=== PATIENT | male | born 1960 | race Caucasian/White ===

== ENCOUNTER 2017-11-21 09:33 | Emergency (ER) | payer BC ==
[2017-11-21 09:49] VITALS: BP 116/73
--- NOTE | 2017-11-21 10:11 | UC ---
Skin Complaint HPI - HPI Summary HPI Summary: Found tick imbedded on back of L shoulder last night, pulled it off. Spends a lot of time outdoors, has no idea how long it's been on him. Hx of lyme, concerned about tick-borne illness. Denies other complaints. - History of Current Complaint Chief Complaint: UCSkin Time Seen by Provider: 11/21/17 09:55 Stated Complaint: TICK BITE Hx Obtained From: Patient Onset/Duration: Sudden Onset Skin Exposure Onset/Duration: Days Ago Timing: Constant Onset Severity: Mild Current Severity: None Pain Intensity: 0 Character: Redness Aggravating Factor(s): Nothing Alleviating Factor(s): Nothing Associated Signs & Symptoms: Positive: Negative Related History: Insect Bite/Sting - Allergy/Home Medications Allergies/Adverse Reactions: Allergies Allergy/AdvReac Type Severity Reaction Status Date / Time No Known Allergies Allergy Verified 11/21/17 09:49 Home Medications: Home Medications Triamcinolone NASAL SPRAY* [Nasacort Aq Nasal [place]*] 1 spray NASAL DAILY [History Confirmed 11/21/17] Review of Systems Constitutional: Negative Skin: Other - tick Eyes: Negative ENT: Negative Respiratory: Negative Cardiovascular: Negative Gastrointestinal: Negative Genitourinary: Negative Motor: Negative Neurovascular: Negative Musculoskeletal: Negative Neurological: Negative Psychological: Negative Is Patient Immunocompromised?: No All Other Systems Reviewed And Are Negative: Yes PMH/Surg Hx/FS Hx/Imm Hx Previously Healthy: Yes - Surgical History Surgical History: Yes Surgery Procedure, Year, and Place: TONSILECTOMY - Family History Known Family History: Positive: None - Social History Occupation: Employed Full-time Lives: With Family Alcohol Use: Occasionally Alcohol Amount: 1 glass of wine with dinner Substance Use Type: None Smoking Status (MU): Never Smoked Tobacco Have You Smoked in the Last Year: No - Immunization History Most Recent Influenza Vaccination: hasn't recieved Most Recent Tetanus Shot: up to date Most Recent Pneumonia Vaccination: hasn't recvied Physical Exam Triage Information Reviewed: Yes Appearance: Well-Appearing, No Pain Distress, Well-Nourished Vital Signs: Initial Vital Signs Temp 96.8 F 11/21/17 09:45 Pulse 53 11/21/17 09:45 Resp 18 11/21/17 09:45 BP 116/73 11/21/17 09:45 Pulse Ox 100 11/21/17 09:45 Vital Signs Reviewed: Yes Eye Exam: Normal Eyes: Positive: Conjunctiva Clear ENT Exam: Normal ENT: Positive: Normal ENT inspection, Hearing grossly normal, Pharynx normal, TMs normal Neck exam: Normal Neck: Positive: Supple, Nontender, No Lymphadenopathy Respiratory Exam: Normal Respiratory: Positive: Chest non-tender, Lungs clear, Normal breath sounds, No respiratory distress, No accessory muscle use Cardiovascular Exam: Normal Cardiovascular: Positive: RRR, No Murmur Musculoskeletal Exam: Normal Musculoskeletal: Positive: Strength Intact Neurological Exam: Normal Neurological: Positive: Alert Psychological Exam: Normal Skin Exam: Other - tick bite site benign on L shoulder -- less than 1cm round red area with ecchymotic center. No drainage or streaking. Course/Dx - Diagnoses Provider Diagnoses: tick bite Discharge - Sign-Out/Discharge Documenting (check all that apply): Discharge/Admit/Transfer - Discharge Plan Condition: Stable Disposition: HOME Prescriptions: DOXYcycline CAP(*) [DOXYcycline 100MG CAP(*)] 200 mg PO ONCE #2 cap Patient Education Materials: Tick Bite (ED) Referrals: Warren Gibson MD [Primary Care Provider] - Additional Instructions: You have been bitten by a tick. Once the tick is removed, these "bites" usually cause no problems. Tick fever, tick paralysis, [place] Spotted fever, and Lyme disease are uncommon -- but you should mention this tick bite to your doctor if you develop unusual symptoms in the next several weeks. If you develop any of the following, please see your physician promptly: (1) Fever, chills, or generalized malaise associated with a headache. (2) A red round area at the site of the bite (or elsewhere) (3) Joint pain, joint swelling or generalized weakness. (4) Redness, swelling, or drainage at the site of the bite. Check yourself, your children and your pets for ticks whenever you've been in an area where ticks live. To remove a tick, grasp it firmly with some tweezers or a string in a slipknot as close to its head as possible and pull it steadily. Ticks do not have a typical "head" attached to their body. There are mouth parts sticking out which they use to feed. If there are mouth parts left behind in the wound there is NO increased risk of Lyme infection; however, the chances of a bacterial skin infection (cellulitis) are higher. If mouth parts remain after tick removal, the best thing to do is apply warm soaks to the area 3-4 times per day to encourage the skin to expel the foreign material. DOXYCYCLINE: Doxycycline (Vibramycin, Doryx) is an antibiotic of the tetracycline family. This type of drug is useful for infections of the respiratory tract and genital tract, and is sometimes used for intestinal infections. Unlike most tetracyclines, doxycycline can be taken with food. It is longer acting, and (usually) less prone to side effects than regular tetracycline. Tetracycline antibiotics can stain immature teeth and SHOULD NOT BE TAKEN BY CHILDREN, NURSING MOTHERS, OR WOMEN. Tetracyclines can make you more prone to sunburn. Abdominal cramping, nausea, and diarrhea are occasional side effects. Women may experience vaginal yeast infections. Call the doctor at once if you develop hives, itching, shortness of breath , or lightheadedness. WHEN A TICK IS NOT ENGORGED AND HAS BEEN ON LESS THAN 24 HOURS - THE RISK FOR LYME IS NEGLIGIBLE. YOU CAN REMOVE THE TICK AND OBSERVE THE AREA ON YOUR OWN. FOLLOW-UP CARE: You should contact your private physician for follow-up care if you develop spreading redness near the site of the bite or on any other areas of the body. If you are unable to get a timely appointment, or if you are worsening, call us or return for re-evaluation. - Billing Disposition and Condition Condition: STABLE Disposition: HOME
== END 2017-11-21 10:17 | disposition home or self-care (01) ==
LOC: UCEAST 09:33
DX: S40.262A Insect bite (nonvenomous) of left shoulder, initial encounter (principal); W57.XXXA Bitten or stung by nonvenomous insect and other nonvenomous arthropods, initial encounter; Y93.9 Activity, unspecified; Y92.9 Unspecified place or not applicable
CPT/HCPCS: 99212; G0463

== ENCOUNTER 2018-03-05 08:27 | Emergency (ER) | payer BC ==
[2018-03-05 08:39] VITALS: BP 107/63
[2018-03-05] MEDS ORDERED: Tetan/Diph/Pertus SYR(Tdap)* 0.5 ML SYR(BOOSTRIX) use SYR IM ONE (08:44)
--- NOTE | 2018-03-05 08:49 | UC ---
Laceration HPI - HPI Summary HPI Summary: This patient is a 57 year old M presenting to [facility] with a chief complaint of a puncture wound to R hand since yesterday. Patient denies pain when moving his thumb. He was ripping out floor boards and a nail punctured his R hand. The nail came out on its own. Patient did not clean the wound until 2 hours later. He has no reason to believe his immune system is compromised. Patient is R handed and has never had a surgery on his R hand. He is requesting a tetanus shot. no analgesia taken no other injuries RHD Pt's medications reviewed this visit His PCP is Warren Gibson MD. - History Of Current Complaint Chief Complaint: UCWounds Stated Complaint: PUNCTURE WOUND Time Seen by Provider: 03/05/18 08:39 Hx Obtained From: Patient Laceration Location: Hand - R hand Mechanism Of Injury: Sharp Trauma - Nail Onset/Duration: Sudden Onset, Lasting Days - Since yesterday, Still Present Severity: Mild Pain Intensity: 0 Pain Scale Used: 0-10 Numeric - Allergies/Home Medications Allergies/Adverse Reactions: Allergies Allergy/AdvReac Type Severity Reaction Status Date / Time No Known Allergies Allergy Verified 03/05/18 08:39 PMH/Surg Hx/FS Hx/Imm Hx Previously Healthy: Yes Other History Of: Negative For: HIV - Surgical History Surgical History: Yes Surgery Procedure, Year, and Place: TONSILECTOMY - Family History Known Family History: Positive: Other - Cancer Negative: Cardiac Disease, Diabetes - Social History Occupation: Employed Full-time Lives: With Family Alcohol Use: Occasionally Alcohol Amount: 1 glass of wine with dinner Substance Use Type: None Smoking Status (MU): Never Smoked Tobacco Have You Smoked in the Last Year: No - Immunization History Most Recent Influenza Vaccination: hasn't recieved Most Recent Tetanus Shot: up to date Most Recent Pneumonia Vaccination: hasn't recvied Review of Systems Skin: Other - Puncture wound to R hand from a nail Musculoskeletal: Other: - Denies pain when moving his R thumb All Other Systems Reviewed And Are Negative: Yes Physical Exam - Summary Physical Exam Summary: Vital Signs Reviewed: Yes A+Ox3, no distress JUAN LUIS. EOM intact and full ENT: Hearing grossly normal T\ Neck: Positive: Supple Respiratory: Positive: No respiratory distress, No accessory muscle use Cardiovascular: 2+ radial, ulnar CBT < 2 sec Musculoskeletal Exam: + flex/ext wrist, elbow + pronate/supinate + thumb up, abduction, adduction, flexion, extension Psychological: Positive: Normal Response To Family Skin: Positive: small scabbed puncture wound thenar eminence right hand no erythema, no drainage, nontender, no fluctuance Triage Information Reviewed: Yes Vital Signs: Initial Vital Signs Temp 98.1 F 03/05/18 08:36 Pulse 53 03/05/18 08:36 Resp 20 03/05/18 08:36 BP 107/63 03/05/18 08:36 Pulse Ox 100 03/05/18 08:36 Vital Signs Reviewed: Yes Laceration Course/Dx - Course/Dx Course Of Treatment: with puncture wound right thenar eminence. not immunocomprmised. will update tetanus. reviewed s/s infection. pt given Rx abx - going otu of tomorrow - will take if sx develop. return precautions. wound care - Differential Dx - Laceration/Wound Provider Diagnoses: puncture wound. tdap booster Discharge - Sign-Out/Discharge Documenting (check all that apply): Patient Departure - D/C All imaging exams completed and their final reports reviewed: No Studies - Discharge Plan Condition: Stable Disposition: HOME Prescriptions: Amoxicillin PO (*) [Amoxicillin 875 MG (*)] 875 mg PO BID #14 tab Patient Education Materials: Diphtheria/Pertussis/Tetanus Vaccine (By injection ), Diphtheria/Acellular Pertussis/Tetanus Booster Vaccine (By injection), Puncture Wound (ED) Referrals: Warren Gibson MD [Primary Care Provider] - Additional Instructions: - keep wound clean. Wash with warm soapy water 2 times a day. Monitor closely for signs of infection - reddness, red streaking, drainage, increased pain, fever. If you have any concerns, it is recommended you take antibiotics as prescribed - your arm will likely be sore from your tetanus vaccine. This is normal - it is usually most painful the first 24 hours. Using your arm will decrease discomfort - contact your doctor, return here or seek medical attention with any concerns regarding your wound - Billing Disposition and Condition Condition: STABLE Disposition: Home - Attestation Statements Document Initiated by Scribe: Yes Documenting Scribe: Oj Fletcher Provider For Whom Scribe is Documenting (Include Credential): Fe Hanley MD Scribe Attestation: I, Oj Fletcher, scribed for Fe Hanley MD on 03/06/18 at 1000. Scribe Documentation Reviewed: Yes Provider Attestation: The documentation as recorded by the [email or web address] accurately reflects the service I personally performed and the decisions made by me, Fe Hanley MD
== END 2018-03-05 08:55 | disposition home or self-care (01) ==
LOC: UCEAST 08:27
DX: S61.431A Puncture wound without foreign body of right hand, initial encounter (principal); W45.0XXA Nail entering through skin, initial encounter; Y93.89 Activity, other specified; Y92.9 Unspecified place or not applicable
CPT/HCPCS: 90471; 90715; 99201; G0010; G0463